=== PATIENT | female | born 1985 | race Caucasian/White ===

== ENCOUNTER → 2016-10-21 | Outpatient (REF) | payer BC ==
[~2016-10-21] MED LIST: IBUP80TA PO; LABE20TAB PO; LABE300T PO
== END ==
LOC: M LAB REF 09:10
PROVIDERS: ATTEND Physician Assistant
DX: T81.30XA Disruption of wound, unspecified, initial encounter (principal)

== ENCOUNTER → 2017-01-30 | Outpatient (REF) | payer BC | LOC: EEVIPCON 09:04 → M LAB REF 09:04 | PROVIDERS: ATTEND Physician Assistant | DX: R30.0 Dysuria (principal) ==

== ENCOUNTER → 2018-08-30 | Outpatient (REF) | payer BC ==
[~2018-08-30] MED LIST changes: +LABE200T13 PO; -LABE20TAB PO
== END ==
LOC: M LAB REF 12:32
PROVIDERS: ATTEND Physician Assistant
DX: J02.9 Acute pharyngitis, unspecified (principal)

== ENCOUNTER → 2019-06-26 | Outpatient (REF) | payer BC | LOC: M LAB REF 12:29 | PROVIDERS: ATTEND Family Medicine | DX: R74.8 Abnormal levels of other serum enzymes (principal) ==

== ENCOUNTER → 2019-10-01 | Outpatient (REF) | payer BC | LOC: M SFHCWAGY 17:55 | PROVIDERS: ATTEND Advanced Practice Midwife | DX: Z12.4 Encounter for screening for malignant neoplasm of cervix (principal) | CPT/HCPCS: 87624; G0123 ==

== ENCOUNTER → 2019-10-06 | Outpatient (CLI) | payer BC ==
--- NOTE | 2019-10-07 03:46 | REP ---
Clinical: Menorrhagia . Technique: Transabdominal pelvic ultrasound followed by transvaginal examination for better evaluation of the endometrium and adnexa with color Doppler evaluation of the ovaries. Findings: Bladder is collapsed. Heterogeneous anteverted uterus measures 8.3 x 4.3 x 4.8 cm and section scar noted. The endometrial complex measures 9 mm thickness. No discrete uterine or endometrial abnormalities are appreciated. Incidental subcentimeter Nabothian cysts are identified. Bilateral ovaries are normal in vascularity without evidence for torsion. Right ovary measures 2.9 x 1.3 x 1.3 cm with small normal follicles noted. Left ovary measures 2.8 x 2.5 x 2.0 cm and includes small follicles and resolving hemorrhagic cyst measuring 1.7 x 1.0 x 0.4 cm. Trace free fluid in the pelvis likely physiologic . Impression: 1. No discrete significant uterine abnormality. Small Nabothian cysts noted. 2. Presumed resolving hemorrhagic left ovarian cyst.
== END ==
LOC: M WHC 08:07
PROVIDERS: ATTEND Advanced Practice Midwife
DX: N92.0 Excessive and frequent menstruation with regular cycle (principal)

== ENCOUNTER → 2019-12-08 | Outpatient (CLI) | payer BC | LOC: M LABSMTC 10:19 | PROVIDERS: ATTEND Anesthesiology | DX: Z01.818 Encounter for other preprocedural examination (principal) | CPT/HCPCS: C9803; U0003 ==

== ENCOUNTER 2019-12-12 10:42 | Day surgery (SDC) | payer BC ==
[~2019-12-12] VITALS: Ht 167.6 cm; Wt 89.1 kg
[2019-12-12] MEDS ORDERED: ONDANSETRON 4MG/2ML VIAL As Ordered ONE (11:22)
[2019-12-12] MEDS ORDERED: propofoL 200 MG/20 ML VIAL As Ordered ONE (11:22)
[2019-12-12] MEDS ORDERED: dexameTHASONE 4 MG/ML 1ML VIAL (J1100 PER 1MG) As Ordered ONE (11:22)
[2019-12-12] MEDS ORDERED: LIDOCAINE 2% 100MG/5ML SDV (FOR ANES.) As Ordered ONE (11:22)
[2019-12-12] MEDS ORDERED: MIDAZOLAM INJ 2MG/2ML VIAL (J2250 PER 1MG) As Ordered ONE (11:23)
[2019-12-12] MEDS ORDERED: fentaNYL 100 MCG/2 ML INJECTION (J3010) As Ordered ONE (11:23)
[2019-12-12 11:29] LABS: HEMATOCRIT 45.9 % (36.0-47.0); HEMOGLOBIN 15.3 g/dl (12.0-15.5); MEAN CORPUSCULAR HEMOGLOBIN 28.5 pg (27.0-33.0); MEAN CORPUSCULAR HGB CONC 33.3 g/dl (32.0-36.5); MEAN CORPUSCULAR VOLUME 85.6 fl (80.0-96.0); PLATELET COUNT, AUTOMATED 317 10^3/uL (150-450); RED BLOOD COUNT 5.36 10^6/uL (4.00-5.40); WHITE BLOOD COUNT 7.3 10^3/uL (4.0-10.0)
[2019-12-12] MEDS ORDERED: LR 1,000 ML IV ONE (11:30)
[2019-12-12] MEDS ORDERED: KETOROLAC 60MG 2ML VIAL As Ordered ONE (13:01)
[2019-12-12] MEDS ORDERED: LR 1,000 ML IV SCH ×2 (13:30)
[2019-12-12] MEDS ORDERED: fentaNYL 100 MCG/2 ML INJECTION (J3010) IV PRN (13:30)
[2019-12-12] MEDS ORDERED: ONDANSETRON 4MG/2ML VIAL IV PRN (13:30)
[2019-12-12] MEDS ORDERED: HYDROMORPHONE HCL 0.5 MG/ 0.5 ML SYRINGE (J1170 PER 1) IV PRN (13:30)
[2019-12-12] MEDS ORDERED: oxyCODONE 5MG TAB PO PRN (13:30)
[2019-12-12] MEDS ORDERED: PERCOCET 5MG/325MG TAB PO PRN (13:45)
[2019-12-12 14:43] VITALS: BP 109/60
== END 2019-12-12 14:50 | disposition home or self-care (01) ==
LOC: M SDC 10:42
PROVIDERS: ATTEND Specialist
DX: N92.0 Excessive and frequent menstruation with regular cycle (principal); F41.9 Anxiety disorder, unspecified; F32.9 Major depressive disorder, single episode, unspecified
CPT/HCPCS: 36415; 58563; 81025; 85027; 88305; J1100; J1885; J2250; J2405; J3010

== ENCOUNTER → 2022-06-08 | Outpatient (CLI) | payer OTHER ==
[2022-06-08 11:17] LABS: BASO # 0.1 10^3/uL (0.0-0.2); EOS # 0.1 10^3/uL (0.0-0.5); EOS % 1.3 % (0.0-3.0); HEMATOCRIT 41.3 % (36.0-47.0); HEMOGLOBIN 13.2 g/dl (12.0-15.5); LYMPH # 1.9 10^3/uL (1.5-5.0); LYMPH % 37.3 % (24.0-44.0); MEAN CORPUSCULAR HEMOGLOBIN 28.4 pg (27.0-33.0); MEAN CORPUSCULAR VOLUME 88.8 fl (80.0-96.0); MONO # 0.5 10^3/uL (0.0-0.8); MONO % 8.8 % (2.0-8.0); NEUTROPHILS # 2.7 10^3/uL (1.5-8.5); NEUTROPHILS % 51.6 % (36.0-66.0); PLATELET COUNT, AUTOMATED 258 10^3/uL (150-450); RED BLOOD COUNT 4.65 10^6/uL (4.00-5.40); WHITE BLOOD COUNT 5.2 10^3/uL (4.0-10.0)
[2022-06-08 11:18] LABS: HEMATOCRIT 41.1 % (36.0-47.0)
[2022-06-08 11:35] LABS: HEMOGLOBIN A1c 4.3 % (4.0-6.0)
[2022-06-08 11:39] LABS: MAGNESIUM LEVEL 1.9 MG/DL (1.8-2.4)
[2022-06-08 11:40] LABS: IRON (FE) 112 UG/DL (50-170)
[2022-06-08 11:41] LABS: ALBUMIN 3.8 G/DL (3.2-5.2); ALKALINE PHOSPHATASE 73 U/L (46-116); ALT/SGPT 17 U/L (7.0-40); AST/SGOT 16 U/L (<34); BILIRUBIN,TOTAL 0.8 MG/DL (0.3-1.2); BLOOD UREA NITROGEN 11 MG/DL (9-23); CALCIUM LEVEL 9.5 MG/DL (8.5-10.1); CARBON DIOXIDE LEVEL 25 MMOL/L (20-31); CHLORIDE LEVEL 106 MMOL/L (98-107); CREATININE FOR GFR 0.52 MG/DL (0.55-1.30); GLOMERULAR FILTRATION RATE > 60.0 (>60); GLUCOSE, FASTING 65 MG/DL (60-100); PERCENT SATURATION 43.9 % (13.2-45.0); PHOSPHORUS LEVEL 3.2 MG/DL (2.5-4.9); SODIUM LEVEL 141 MMOL/L (136-145); TOTAL IRON BINDING CAPACITY 255 UG/DL (250-425); TOTAL PROTEIN 6.1 G/DL (5.7-8.2)
[2022-06-08 14:40] LABS: VITAMIN B12 LEVEL > 2000 PG/ML (211-911)
[2022-06-12 21:07] LABS: COPPER PLASMA 110 ug/dL (80-158); ZINC PLASMA 90 ug/dL (44-115)
== END ==
LOC: M WUC 09:34
PROVIDERS: ATTEND Surgery
DX: E66.01 Morbid (severe) obesity due to excess calories (principal); K91.2 Postsurgical malabsorption, not elsewhere classified; Z98.84 Bariatric surgery status; M89.9 Disorder of bone, unspecified

== ENCOUNTER → 2023-05-11 | Outpatient (REF) | payer MEDICARE | LOC: M PLALAB 09:39 | PROVIDERS: ATTEND Advanced Practice Midwife | DX: Z12.4 Encounter for screening for malignant neoplasm of cervix (principal) | CPT/HCPCS: 87624; G0123 ==

== ENCOUNTER → 2023-11-16 | Outpatient (REF) | payer MEDICARE ==
[2023-11-16 17:47] LABS: C REACTIVE PROTEIN QUANTITATIV < 0.40 MG/DL (<1.0)
[2023-11-16 17:49] LABS: IRON (FE) 102 UG/DL (50-170); PERCENT SATURATION 35.4 % (13.2-45.0); PHOSPHORUS LEVEL 3.8 MG/DL (2.5-4.9); TOTAL IRON BINDING CAPACITY 288 UG/DL (250-425)
[2023-11-16 17:52] LABS: FERRITIN 97.2 NG/ML (7.3-270.7)
[2023-11-16 17:53] LABS: TOTAL 25(OH) VITAMIN D 39.6 NG/ML (20.0-100.0)
[2023-11-16 17:54] LABS: FOLATE 17.7 NG/ML (>5.4); VITAMIN B12 LEVEL > 2000 PG/ML (211-911)
[2023-11-19 08:39] LABS: LIPASE 56 U/L (12-53)
[2023-11-21 23:37] LABS: VITAMIN A, RETINOL LEVEL 49 mcg/dL (38-98)
[2023-11-23 08:08] LABS: VITAMIN B1 LEVEL WHOLE BLOOD 125 nmol/L (78-185)
== END ==
LOC: M LAB REF 16:45
PROVIDERS: ATTEND Family Medicine
DX: M54.6 Pain in thoracic spine (principal); R10.816 Epigastric abdominal tenderness; M79.10 Myalgia, unspecified site; Z98.84 Bariatric surgery status

== ENCOUNTER → 2024-05-15 | Outpatient (CLI) | payer OTHER | LOC: M WHC 14:28 | PROVIDERS: ATTEND Advanced Practice Midwife | DX: Z12.31 Encounter for screening mammogram for malignant neoplasm of breast (principal); R92.323 Mammographic fibroglandular density, bilateral breasts ==

== ENCOUNTER → 2024-05-15 | Outpatient (REF) | payer OTHER | LOC: M SFHCWAGY 16:56 | PROVIDERS: ATTEND Nurse Practitioner Family | DX: N73.9 Female pelvic inflammatory disease, unspecified (principal) ==

== ENCOUNTER → 2025-05-20 | Outpatient (CLI) | payer BC, OTHER, SELFPAY | LOC: M WHC 09:29 | PROVIDERS: ATTEND Advanced Practice Midwife | DX: Z12.31 Encounter for screening mammogram for malignant neoplasm of breast (principal); R92.323 Mammographic fibroglandular density, bilateral breasts ==

== ENCOUNTER → 2025-05-25 | Outpatient (CLI) | payer BC, SELFPAY | LOC: M WHC 13:22 | PROVIDERS: ATTEND Family Medicine | DX: R92.8 Other abnormal and inconclusive findings on diagnostic imaging of breast (principal); R92.323 Mammographic fibroglandular density, bilateral breasts ==